=== PATIENT | male | born 1980 | race Caucasian/White ===

== ENCOUNTER 2017-04-09 22:04 | Emergency (ER) | payer OTHER ==
[2017-04-09 22:13] VITALS: RESP 16; TEMP 97.5
[2017-04-09] MEDS ORDERED: IBUPROFEN 600 MG TAB PO ONE (23:33)
[2017-04-09] MEDS ORDERED: SKIN ADHESIVE (DERMABOND) 1 EACH TP ONE (23:58)
--- NOTE | 2017-04-10 00:03 | EDPHY ---
H & P Smoking Status: Never smoked Time Seen by Provider: 04/09/17 23:53 HPI/ROS: CHIEF COMPLAINT: Abrasion to bridge of nose HISTORY OF PRESENT ILLNESS: 36-year-old male arrives via private vehicle after he accidentally ran into a door impacting the bridge of his nose. He is concerned he may have broken his nose. Sustained an abrasion to the bridge of his nose. He also sustained epistaxis which is now resolved. No loss of consciousness. No visual disturbance. No diplopia. No midline C-spine pain. No peripheral paresthesia, weakness, numbness. PRIMARY CARE PROVIDER: in [place] REVIEW OF SYSTEMS: A ten point review of systems was performed and is negative with the exception of the items mentioned in the HPI PAST MEDICAL/SURGICAL HISTORY: no anticoagulant use, no relevant medical/ surgical history. Lives in [place] SOCIAL HISTORY: denies alcohol use at time of incident PHYSICAL EXAM 1) GENERAL: Well-developed, well-nourished, alert and oriented. Answering questions appropriately. 2) HEAD: Normocephalic, atraumatic 3) HEENT: Pupils equal, round, reactive to light bilaterally. Negative Horners. Extraocular movements do not elicit diplopia or abnormal gaze. There is a 5 mm laceration bridge of nose. Nasopharynx, oropharynx, clear. No deformity or angulation of nose. No septal hematoma. No rhinorrhea. No oral trauma. Ears bilaterally with normal tympanic membranes. No hemotympanum. No fluid or blood in the external auditory canal. No raccoon eyes. No Lakhani sign. Teeth are normally aligned with no gross malocclusion, TMJ bilaterally nontender, facial bones nontender including the zygomatic arch, maxilla mandible. 4) NECK: No cervical collar is on. Posterior cervical spine is nontender, no stepoff, no effusion. Full range of motion which does not elicit any midline cervical spine pain, no posterior midline tenderness, no step-off. 5) LUNGS: Clear to auscultation bilaterally, no wheezes, no rhonchi, no retractions. No obvious signs of trauma. No chest wall pain. No flaring, no grunting. Moving symmetrically. No crepitus. 6) HEART: Regular rate and rhythm, 7) ABDOMEN: No guarding, no rebound, no focal tenderness, no peritoneal signs, no signs of trauma, no ecchymosis 8) MUSCULOSKELETAL: Moving all extremities, no focal areas of tenderness, no obvious trauma. 9) BACK: No midline vertebral tenderness, no fluctuance, no step-off, no obvious trauma, no visual or palpable abnormality. 10) SKIN: abrasion to bridge of nose DIFFERENTIAL DIAGNOSIS: [Not necessarily in any particular order, my differential diagnosis includes, but is not limited to, concussion, skull fracture, in nasal fracture, septal hematoma, intraparenchymal contusion, subarachnoid, subdural and epidural hematoma. The patient understands that this diagnosis is provisional and can never be 100% accurate. (Kwame Cabrera) Constitutional: Initial Vital Signs Temperature (C) 36.4 C 04/09/17 22:11 Heart Rate 61 04/09/17 22:11 Respiratory Rate 16 04/09/17 22:11 Blood Pressure 136/82 H 04/09/17 22:11 O2 Sat (%) 96 04/09/17 22:11 O2 Delivery Mode Room Air Allergies/Adverse Reactions: No Known Allergies Allergy (Unverified 04/09/17 22:09) Home Medications: Medication Instructions Recorded Zoloft 100mg (*) 04/09/17 Amoxicillin/Clavulanate Pot 875 mg PO BID #10 tab 04/10/17 [Augmentin 875 mg tab] MDM/Departure - MDM Procedures: Procedure: Laceration repair with tissue adhesive Verbal consent was obtained from the patient. The 5 mm laceration on the bridge of nose. The wound was scrubbed and explored to its base with a gloved finger. No foreign body seen, no foreign bodies palpated. There were no deep structures involved. The wound was repaired with tissue adhesive. The procedure was performed by myself. Patient has been informed that scarring will occur, although every effort has been made to minimize this. (Kwame Cabrera ) Medications Given: Discontinued Medications Ibuprofen (Motrin) 600 mg PO EDNOW ONE Stop: 04/09/17 23:34 Last Admin: 04/09/17 23:39 Dose: 600 mg Octyl Cyanoacrylate (Dermabond) 1 each TP EDNOW ONE Stop: 04/09/17 23:59 Last Admin: 04/10/17 00:10 Dose: 1 each ED Course/Re-evaluation: I do not think that CT imaging the patient's head and or maxillofacial bones is currently indicated. I have informed him that I cannot rule out nasal fracture however I do not think that this needs to be emergently imaged. I have recommended follow up with an ear nose and throat doctor in [place] as he is returning in a few days back to [place]. Recommend ice packs. (Kwame Cabrera) PHYSICIAN DOCUMENTATION: The patient was evaluated and managed by the Physician Wrapper Leaf Inspector. My co- signature indicates that I have reviewed this chart and I agree with the findings and plan of care as documented. I am the secondary supervising physician. (Minerva Hanson) - Depart Disposition: Home, Routine, Self-Care Clinical Impression: abrasion bridge of nose, Possible nasal fracture Condition: Good Instructions: Nasal Fracture (ED), Abrasion (ED) Prescriptions: Amoxicillin/Clavulanate Pot [Augmentin 875 mg tab] 875 mg PO BID #10 tab Referrals: Fidencio Scott MD [Medical Doctor] - 5-7 days, call for appt. Follow-up, with an ear nose and throat doctor in 5-7 days [Other] - As per Instructions
[2017-04-10 00:27] VITALS: BP 131/78; PULSE 70; O2SAT 97
== END 2017-04-10 00:26 | disposition home or self-care (01) ==
DX: S00.31XA Abrasion of nose, initial encounter (principal); X58.XXXA Exposure to other specified factors, initial encounter; Y99.8 Other external cause status; Y93.02 Activity, running